=== PATIENT | male | born 1945 | race Asian ===

== ENCOUNTER 2018-11-29 06:02 | Day surgery (SDC) | payer OTHER ==
[~2018-11-29] VITALS: Ht 167.6 cm; Wt 75.3 kg
[2018-11-29 06:33] VITALS: BP 143/70
[2018-11-29 11:20] VITALS: BP 151/83
== END 2018-11-29 10:00 | disposition home or self-care (01) ==
LOC: GI 06:02 → OR 07:30 → GI 10:00
DX: D12.2 Benign neoplasm of ascending colon (principal); K64.4 Residual hemorrhoidal skin tags; I10 Essential (primary) hypertension; M19.90 Unspecified osteoarthritis, unspecified site; E78.5 Hyperlipidemia, unspecified; E78.00 Pure hypercholesterolemia, unspecified; E11.9 Type 2 diabetes mellitus without complications; Z79.82 Long term (current) use of aspirin; Z79.899 Other long term (current) drug therapy; Z79.84 Long term (current) use of oral hypoglycemic drugs; Z90.49 Acquired absence of other specified parts of digestive tract; Z98.890 Other specified postprocedural states
CPT/HCPCS: 45378; J1200; J1610; J2250; J2310; J3010; J3490